=== PATIENT | female | born 1950 | race Caucasian/White ===

== ENCOUNTER 2017-02-27 14:21 | Emergency (ER) | payer MEDICARE ==
[~2017-02-27] VITALS: Ht 157.5 cm; Wt 85.7 kg
[~2017-02-27 14:21] MED LIST: VIBRAMYCIN 100100 MG PO
--- OUTSIDE RECORDS SUMMARY | 2017-02-27 14:59 | External Medical Summary Rpt ---
Demographics Preferred Language Gibraltarian Marital Status Unknown Congregation Affiliation Unknown Race Unknown Ethnic Group Unknown Author Author , [employer] Address Unknown Phone Immunization Unable to retrieve immunization data due to connection failure with Immunization Registry. Please try again later.
--- OUTSIDE RECORDS SUMMARY | 2017-02-27 14:59 | External Medical Summary Rpt ---
Demographics Preferred Language Tongan Marital Status Unknown Protestant Affiliation Unknown Race Unknown Ethnic Group Unknown Author Author , MERCEDES LONG Address Unknown Phone Immunization Unable to retrieve immunization data due to connection failure with Immunization Registry. Please try again later.
--- OUTSIDE RECORDS SUMMARY | 2017-02-27 14:59 | External Medical Summary Rpt ---
Author Author [employer] Organization [employer] Address Unknown Phone Unavailable Purpose Continuity of Care Document - through 2016
--- OUTSIDE RECORDS SUMMARY | 2017-02-27 14:59 | External Medical Summary Rpt ---
Author Author [facility] Lyon, [facility] [employer] Organization [employer] Address Unknown Phone Unavailable
--- OUTSIDE RECORDS SUMMARY | 2017-02-27 14:59 | External Medical Summary Rpt ---
Author Author ASHLEE Address Unknown Phone [email or web address] Purpose Continuity of Care Document - through 2016
--- OUTSIDE RECORDS SUMMARY | 2017-02-27 14:59 | External Medical Summary Rpt ---
Author Author ASHLEE Address Unknown Phone [email or web address] Purpose Continuity of Care Document - through 2016
[2017-02-27] MEDS ORDERED: AVPAK AZITHROM250 MG PO (15:10)
--- NOTE | 2017-02-27 15:11 | Emergency Room Report ---
History of Present Illness Time Seen by [id number] Presenting Problem in Triage Pt arrived:Walked Presenting Problem:FEVER AND SORE THROAT SINCE YESTERDAY Onset of symptoms date/time:/ or onset unknown for:MEDICAL HX UNKNOWN Treatment Prior to Arrival: TYLENOL [employer] Provided by:SELF Sepsis Risk Assessment: Temp: 100.8 B/P: 146/101 MAP: 116 Pulse: 94 Resp: 18 Recent fever? N Clinical Suspician of Infection? N Mental Status: 1 - Regular (Normal Baseline) Sepsis Risk:Low Sepsis Risk Have you (or family members/close friends) recently traveled outside the [place]? N If Yes, where/when: Have you had exposure to infectious disease within the past month? TB? Other? Specify: Taking PO fluids well. Sore throat, fever, vomited once but keeping down liquids since then. ALLERGIES Coded Allergies: amoxicillin (Mild, 02/27/17) Home Medications Active Scripts Doxycycline Hyclate (Vibramycin 100MG Tab (Geq)) 100 MG PO BID 7 Days Prov: 05/27/08 History Medical History General Angina: No AR: No Hyperlipidemia? No COPD? No Asthma? No CVA? No Seizures? No Diabetes? No GB Disease: No MRSA? No TB? No Cancer? No Immunization Hx Ped.Immunizations UTD Yes DT/Tetanus 1-4 YRS Surgical Hx Previous Surgery?Y GB REMOVED HYSTERECTOMY PARTIAL Social History Smoking Hx Smoker: Former Smoker Tobacco: No Type N/A Alcohol Alcohol: No Review of Systems All Other Systems Reviewed and Negative Constitutional fever ENT ear pain, throat pain. Respiratory cough Gastrointestinal see HPI Physical Exam Vital Signs Vital Signs Date Time Temp Pulse Resp B/P Pulse O2 O2 Flow FiO2 Ox Delivery Rate 02/27 1427 100.8 94 18 146/101 99 General Appearance normal appearance, WD/WN, no apparent distress Eye Exam - bilateral eye normal exam, bilateral eye PERRL, bilateral eye EOMI Ear, Nose, Throat abnormal TM (L) (cloudy L TM), pharyngeal erythema Neck normal inspection, non-tender, supple, full range of motion, lymphadenopathy (L) Respiratory Status Yes: trachea midline, chest symmetrical, non tender chest, non productive cough. No: respiratory distress, tender on palpation, use of accessory muscles, pain on inspiration, pain on expiration, productive cough. Lung Sounds bilateral: normal breath sounds, lungs clear. Cardiovascular normal exam, regular rate/rhythm, no peripheral edema, no gallop, no JVD, no murmur, no rub Gastrointestinal normal bowel sounds, normal exam, non tender, soft, no organomegaly, no pulsatile mass, no guarding, no rebound Extremities normal range of motion Neurologic alert, normal exam, no motor/sensory deficits, oriented x 3 Skin intact, normal color, warm/dry Lymphatic no adenopathy (pos L ant cerv MINISTERIO) Medical Decision Making LABS/Meds/Orders Pt receiving controlled substance in ED? No Results/Orders Orders Procedure Date/time Status STREP SCREEN THROAT 02/27 1431 Complete Departure Departure Time of Disposition 1508 Disposition DC Home or Self Care(routine) Clinical Impression Primary Impression: Strep pharyngitis Condition STABLE Referrals [facility] NUR Patient Instructions Strep Throat Additional Instructions Push fluids, Rx Zithromax Discharge Counseling Counseled pt/family regarding diagnosis, test results, medications/RX, home care, follow up needs Prescriptions Current Visit Scripts Azithromycin (Avpak Azithromycin) 250 MG PO DAILY #6 TAB ED Critical Care Critical Care No at 1511
[2017-02-27 15:20] VITALS: BP 139/96
== END 2017-02-27 15:21 | disposition home or self-care (01) ==
LOC: ER 14:21
DX: J02.0 Streptococcal pharyngitis (principal)